=== PATIENT | female | born 1950 | race Caucasian/White ===

== ENCOUNTER 2017-10-22 13:18 | Inpatient (IN) | payer MEDICARE, OTHER ==
--- NOTE | 2017-10-22 13:37 | ED ---
General Adult HPI - General Chief complaint: Chest Pain Stated complaint: chest pain Time Seen by Provider: 10/22/17 13:28 Source: patient, RN notes reviewed, old records reviewed Mode of arrival: ambulatory Limitations: no limitations - History of Present Illness Initial comments: This is a 66-year-old female the ER for evaluation chest pain. Patient has no history of chest pain and had chest pain awoke her from sleep about 5 AM this morning. Patient has history of diabetes high blood pressure high cholesterol. No significant recent cardiac evaluation. Patient is no diaphoresis no shortness of breath no recent travel history or sick contacts. No abdominal pain no nausea or vomiting - Related Data Home Medications Medication Instructions Recorded Confirmed Arginine [l-Arginine] 500 mg PO DAILY 10/22/17 10/22/17 Aspirin EC [Ecotrin Low Dose] 81 mg PO DAILY 10/22/17 10/22/17 Atorvastatin [Lipitor] 10 mg PO DAILY 10/22/17 10/22/17 Cholecalciferol (Vitamin D3) 2,000 unit PO DAILY 10/22/17 10/22/17 [Vitamin D3] Esomeprazole Magnesium [NexIUM] 20 mg PO DAILY 10/22/17 10/22/17 Loratadine [Claritin] 10 mg PO DAILY PRN 10/22/17 10/22/17 Losartan Potassium 100 mg PO DAILY 10/22/17 10/22/17 Metoprolol Succinate (ER) [Toprol 25 mg PO DAILY 10/22/17 10/22/17 Xl] Allergies Allergy/AdvReac Type Severity Reaction Status Date / Time codeine AdvReac Unknown Verified 10/22/17 14:43 Review of Systems ROS Statement: Those systems with pertinent positive or pertinent negative responses have been documented in the HPI. ROS Other: All systems not noted in ROS Statement are negative. Past Medical History Past Medical History: Diabetes Mellitus, Hyperlipidemia, Hypertension History of Any Multi-Drug Resistant Organisms: None Reported Past Surgical History: Section, Cholecystectomy Past Psychological History: No Psychological Hx Reported Smoking Status: Current every day smoker Past Alcohol Use History: Occasional Past Drug Use History: None Reported General Exam Limitations: no limitations General appearance: alert, in no apparent distress Head exam: Present: atraumatic, normocephalic, normal inspection Eye exam: Present: normal appearance, PERRL, EOMI. Absent: scleral icterus, conjunctival injection, periorbital swelling ENT exam: Present: normal exam, mucous membranes moist Neck exam: Present: normal inspection. Absent: tenderness, meningismus, lymphadenopathy Respiratory exam: Present: normal lung sounds bilaterally. Absent: respiratory distress, wheezes, rales, rhonchi, stridor Cardiovascular Exam: Present: regular rate, normal rhythm, normal heart sounds. Absent: systolic murmur, diastolic murmur, rubs, gallop, clicks GI/Abdominal exam: Present: soft, normal bowel sounds. Absent: distended, tenderness, guarding, rebound, rigid Extremities exam: Present: normal inspection, full ROM, normal capillary refill. Absent: tenderness, pedal edema, joint swelling, calf tenderness Back exam: Present: normal inspection Neurological exam: Present: alert, oriented X3, CN II-XII intact Psychiatric exam: Present: normal affect, normal mood Skin exam: Present: warm, dry, intact, normal color. Absent: rash Course Vital Signs 10/22/17 10/22/17 10/22/17 13:23 13:50 15:00 Temperature 97.5 F L Pulse Rate 88 68 72 Respiratory 18 18 18 Rate Blood Pressure 183/84 213/84 179/70 O2 Sat by Pulse 97 98 99 Oximetry - Reevaluation(s) Reevaluation #1: 10/22/17 15:41 Patient continues episodic chest pain EKG Findings - EKG Comments: EKG Findings:: EKG shows sinus rhythm rate of 93, IA 154, QRS 90, QTc 482 Medical Decision Making - Medical Decision Making 66 female DEL chest pain, history of high blood pressure cholesterol diabetes. Positive smoker. Will admit for cardiology observation - Lab Data Result diagrams: 10/22/17 13:50 10/22/17 13:50 Lab Results 10/22/17 10/22/17 10/22/17 Range/Units 13:50 13:50 13:50 WBC 9.8 (3.8-10.6) k/uL RBC 4.49 (3.80-5.40) m/uL Hgb 14.3 (11.4-16.0) gm/dL Hct 41.4 (34.0-46.0) % MCV 92.2 (80.0-100.0) fL MCH 31.8 (25.0-35.0) pg MCHC 34.5 (31.0-37.0) g/dL RDW 12.5 (11.5-15.5) % Plt Count 287 (150-450) k/uL Neutrophils % 78 % Lymphocytes % 16 % Monocytes % 4 % Eosinophils % 0 % Basophils % 0 % Neutrophils # 7.6 (1.3-7.7) k/uL Lymphocytes # 1.6 (1.0-4.8) k/uL Monocytes # 0.4 (0-1.0) k/uL Eosinophils # 0.0 (0-0.7) k/uL Basophils # 0.0 (0-0.2) k/uL PT (9.0-12.0) sec INR (<1.2) APTT (22.0-30.0) sec D-Dimer (<0.60) mg/L FEU Sodium 142 (137-145) mmol/L Potassium 4.7 (3.5-5.1) mmol/L Chloride 101 (98-107) mmol/L Carbon Dioxide 29 (22-30) mmol/L Anion Gap 12 mmol/L BUN 14 (7-17) mg/dL Creatinine 0.48 L (0.52-1.04) mg/dL Est GFR (CKD-EPI)AfAm >90 (>60 ml/min/1.73 sqM) Est GFR (CKD-EPI)NonAf >90 (>60 ml/min/1.73 sqM) Glucose 217 H (74-99) mg/dL Calcium 9.2 (8.4-10.2) mg/dL Magnesium 1.7 (1.6-2.3) mg/dL Total Bilirubin 0.5 (0.2-1.3) mg/dL AST 23 (14-36) U/L ALT 33 (9-52) U/L Alkaline Phosphatase 84 (38-126) U/L Total Creatine Kinase 57 (30-135) U/L CK-MB (CK-2) 1.1 (0.0-2.4) ng/mL CK-MB (CK-2) Rel Index 1.9 Troponin I <0.012 (0.000-0.034) ng/mL Total Protein 7.1 (6.3-8.2) g/dL Albumin 4.1 (3.5-5.0) g/dL Lipase 32 (23-300) U/L 10/22/17 Range/Units 13:50 WBC (3.8-10.6) k/uL RBC (3.80-5.40) m/uL Hgb (11.4-16.0) gm/dL Hct (34.0-46.0) % MCV (80.0-100.0) fL MCH (25.0-35.0) pg MCHC (31.0-37.0) g/dL RDW (11.5-15.5) % Plt Count (150-450) k/uL Neutrophils % % Lymphocytes % % Monocytes % % Eosinophils % % Basophils % % Neutrophils # (1.3-7.7) k/uL Lymphocytes # (1.0-4.8) k/uL Monocytes # (0-1.0) k/uL Eosinophils # (0-0.7) k/uL Basophils # (0-0.2) k/uL PT 10.2 (9.0-12.0) sec INR 1.0 (<1.2) APTT 24.5 (22.0-30.0) sec D-Dimer 0.35 (<0.60) mg/L FEU Sodium (137-145) mmol/L Potassium (3.5-5.1) mmol/L Chloride (98-107) mmol/L Carbon Dioxide (22-30) mmol/L Anion Gap mmol/L BUN (7-17) mg/dL Creatinine (0.52-1.04) mg/dL Est GFR (CKD-EPI)AfAm (>60 ml/min/1.73 sqM) Est GFR (CKD-EPI)NonAf (>60 ml/min/1.73 sqM) Glucose (74-99) mg/dL Calcium (8.4-10.2) mg/dL Magnesium (1.6-2.3) mg/dL Total Bilirubin (0.2-1.3) mg/dL AST (14-36) U/L ALT (9-52) U/L Alkaline Phosphatase (38-126) U/L Total Creatine Kinase (30-135) U/L CK-MB (CK-2) (0.0-2.4) ng/mL CK-MB (CK-2) Rel Index Troponin I (0.000-0.034) ng/mL Total Protein (6.3-8.2) g/dL Albumin (3.5-5.0) g/dL Lipase (23-300) U/L - Radiology Data Radiology results: report reviewed (Chest x-rays negative for acute disease), image reviewed Critical Care Time Critical Care Time: Yes Total Critical Care Time: 31 Disposition Clinical Impression: Chest pain Disposition: ADMITTED IP TO THIS [facility] Condition: Undetermined Instructions: Chest Pain (ED) Is patient prescribed a controlled substance at d/c from ED?: No Referrals: Tylor Marx MD [Primary Care Provider] - 1-2 days
[2017-10-22 14:17] LABS: Basophils % (A) 0 %; Eosinophils % (A) 0 %; HCT 41.4 % (34.0-46.0); HGB 14.3 gm/dL (11.4-16.0); Lymphocytes # (A) 1.6 k/uL (1.0-4.8); Lymphocytes % (A) 16 %; MCH 31.8 pg (25.0-35.0); MCHC 34.5 g/dL (31.0-37.0); MCV 92.2 fL (80.0-100.0); Mean Platelet Volume 7.5; Monocytes # (A) 0.4 k/uL (0-1.0); Monocytes % (A) 4 %; Neutrophils # (A) 7.6 k/uL (1.3-7.7); Neutrophils % (A) 78 %; Platelet Count 287 k/uL (150-450); RBC 4.49 m/uL (3.80-5.40); RDW 12.5 % (11.5-15.5); WBC 9.8 k/uL (3.8-10.6)
--- NOTE | 2017-10-22 14:25 | XR ---
EXAMINATION TYPE: XR chest 2V DATE OF EXAM: 10/22/2017 COMPARISON: 03/11/2010 TECHNIQUE: PA and lateral views submitted. HISTORY: Chest pain FINDINGS: The lungs are clear and there is no pneumothorax, pleural effusion, or focal pneumonia. Biapical pl eural thickening. Atherosclerotic change aorta. No overt failure. Previous surgery involving the abdo men. IMPRESSION: 1. No acute process.
[2017-10-22 14:31] LABS: ALT 33 U/L (9-52); AST 23 U/L (14-36); Albumin 4.1 g/dL (3.5-5.0); Alkaline Phosphatase 84 U/L (38-126); Anion Gap 12 mmol/L; Blood Urea Nitrogen 14 mg/dL (7-17); Calcium 9.2 mg/dL (8.4-10.2); Carbon Dioxide 29 mmol/L (22-30); Chloride 101 mmol/L (98-107); Glucose 217 mg/dL (74-99); Lipase 32 U/L (23-300); Magnesium 1.7 mg/dL (1.6-2.3); Potassium 4.7 mmol/L (3.5-5.1); Sodium 142 mmol/L (137-145); Total Bilirubin 0.5 mg/dL (0.2-1.3); Total Protein 7.1 g/dL (6.3-8.2)
[2017-10-22 14:36] LABS: D-Dimer 0.35 mg/L FEU (<0.60); Partial Thromboplastin Time 24.5 sec (22.0-30.0); Prothrombin Time 10.2 sec (9.0-12.0)
[2017-10-22 14:53] LABS: Creatine Kinase 57 U/L (30-135)
[2017-10-22 15:04] LABS: Creatine Kinase MB 1.1 ng/mL (0.0-2.4); Troponin I <0.012 ng/mL (0.000-0.034)
[2017-10-22] MEDS ORDERED: HEPARIN SODIUM,PORCINE 5,000 UNIT/ML 1 ML VIAL IV ONE (15:29)
[2017-10-22] MEDS ORDERED: ASPIRIN 81 MG PO STA (15:29)
[2017-10-22] MEDS ORDERED: NITROGLYCERIN SL TABS 0.4 MG TAB SUBLINGUAL PRN (15:29)
[2017-10-22] MEDS ORDERED: HEPARIN SODIUM,PORCINE 5,000 UNIT/ML 1 ML VIAL IV PRN (15:29)
[2017-10-22] MEDS ORDERED: HEPARIN SODIUM,PORCINE/D5W PMX 25,000 UNIT in DEXTROSE/WATER 1 500ML.BAG IV SCH (15:30)
[2017-10-22] MEDS ORDERED: METOPROLOL TARTRATE 25 MG TAB PO SCH (21:00)
[2017-10-22 21:39] VITALS: BMI 31.8
[2017-10-22 22:02] LABS: Creatine Kinase 51 U/L (30-135)
[2017-10-22] MEDS: NICOTINE 14MG/24HR PATCH TRANSDERM SCH (22:03)
[2017-10-22 22:15] LABS: Creatine Kinase MB 0.9 ng/mL (0.0-2.4); Troponin I <0.012 ng/mL (0.000-0.034)
[2017-10-23 01:36] LABS: Creatine Kinase 46 U/L (30-135)
[2017-10-23 01:48] LABS: Troponin I <0.012 ng/mL (0.000-0.034)
[2017-10-23] MEDS: ACETAMINOPHEN TAB 325 MG TAB PO PRN ×2 (03:38→10:28)
[2017-10-23 07:03] LABS: Glucose,Whole Blood 102 mg/dL (75-99)
[2017-10-23 07:45] LABS: Mean Platelet Volume 7.2; Platelet Count 269 k/uL (150-450)
[2017-10-23 08:00] LABS: Cholesterol 148 mg/dL (<200); HDL Cholesterol 61 mg/dL (40-60); LDL Cholesterol,Calculated 67 mg/dL (0-99); Triglycerides 98 mg/dL (<150)
[2017-10-23] MEDS ORDERED: ASPIRIN 325 MG TAB PO SCH (09:00)
[2017-10-23] MEDS ORDERED: ASPIRIN 81 MG PO SCH (09:00)
--- NOTE | 2017-10-23 10:34 | P.CRDCN ---
History of Present Illness History of present illness: Mrs. Villalobos is a pleasant 66-year-old female past medical history significant for hypertension, dyslipidemia, diabetes mellitus, bilateral carotid artery stenosis and chronic tobacco dependence. She follows with Dr. Moreira in the office. We have asked to see her in consultation for symptoms of chest pain. She states yesterday she started experiencing sharp intermittent discomfort in the mid-sternal region. No radiation and no associated symptoms. She has also had diarrhea since yesterday morning as well. The pain was off and on all day yesterday with no specific aggravating factors. Since being in the hospital pain has subsided entirely. She states it seems to feel better while she is lying flat in bed. Blood pressure on admission was 183/84 and 213/ 84. EKG reveals sinus mechanism with no acute ST or T-wave abnormalities. Chest x-ray is negative for acute cardiopulmonary process. Laboratory data reviewed, cardiac enzymes negative 3, d-dimer normal, hemoglobin 14.3, platelets 269, sodium 142, potassium 4.7, creatinine 0.48, magnesium 1.7, LDL 67, HDL 61. Current cardiac medications include Toprol 25 mg daily, losartan 100 mg daily, atorvastatin 10 mg daily and aspirin 81 mg daily. She also takes Claritin, Nexium and has an insulin infusion pump. Most recent stress test performed in the office in 2012 was negative for reversible cardiac ischemia. Most recent echocardiogram May 2016 reveals preserved left ventricular systolic function with ejection fraction 55%. Most recent carotid duplex performed June 2017 revealed 50-79% ICA bilateral stenosis. She recently wore a 24-hour Holter monitor first complaints of palpitations which revealed sinus mechanism with no acute arrhythmia or tachycardia. Review of Systems At the time of my exam: CONSTITUTIONAL: Denies fever. Denies chills. EYES: Denies blurred vision. Denies vision changes. Denies eye pain. EARS, NOSE, MOUTH & THROAT: Denies headache. Denies sore throat. Denies ear pain. CARDIOVASCULAR: Denies chest pain. Denies shortness of breath. Denies orthopnea. Denies PND. Denies palpitations. RESPIRATORY: Denies cough. GASTROINTESTINAL: Denies abdominal pain. Denies diarrhea. Denies constipation. Denies nausea. Denies vomiting. MUSCULOSKELETAL: Denies myalgias. INTEGUMENTARY: Denies pruitis. Denies rash. NEUROLOGIC: Denies numbness. Denies tingling. Denies weakness. PSYCHIATRIC: Denies anxiety. Denies depression. ENDOCRINE: Denies fatigue. Denies weight change. Denies polydipsia. Denies polyurina. GENITOURINARY: Denies burning, hematuria or urgency with micturation. HEMATOLOGIC: Denies history of anemia. Denies bleeding. Past Medical History Past Medical History: Diabetes Mellitus, Hyperlipidemia, Hypertension Additional Past Medical History / Comment(s): Implanted insulin pump History of Any Multi-Drug Resistant Organisms: None Reported Past Surgical History: Section, Cholecystectomy Past Anesthesia/Blood Transfusion Reactions: No Reported Reaction Smoking Status: Current every day smoker - Past Family History Mother Family Medical History: Cancer Additional Family Medical History / Comment(s): pancreatic Ca, stents Father Family Medical History: Cancer Additional Family Medical History / Comment(s): Prostate CA, heart issues Sister(s) Family Medical History: Diabetes Mellitus Medications and Allergies Home Medications Medication Instructions Recorded Confirmed Type Arginine [l-Arginine] 500 mg PO DAILY 10/22/17 10/22/17 History Aspirin EC [Ecotrin Low Dose] 81 mg PO DAILY 10/22/17 10/22/17 History Atorvastatin [Lipitor] 10 mg PO DAILY 10/22/17 10/22/17 History Cholecalciferol (Vitamin D3) 2,000 unit PO DAILY 10/22/17 10/22/17 History [Vitamin D3] Esomeprazole Magnesium [NexIUM] 20 mg PO DAILY 10/22/17 10/22/17 History Loratadine [Claritin] 10 mg PO DAILY PRN 10/22/17 10/22/17 History Losartan Potassium 100 mg PO DAILY 10/22/17 10/22/17 History Metoprolol Succinate (ER) [Toprol 25 mg PO DAILY 10/22/17 10/22/17 History Xl] Allergies Allergy/AdvReac Type Severity Reaction Status Date / Time ibuprofen [From Advil] Allergy Rash/Hives Verified 10/22/17 21:22 codeine AdvReac Rash/Hives Verified 10/22/17 21:22 Physical Exam Vitals: Vital Signs Temp Pulse Pulse Resp BP BP Pulse Ox 10/23/17 03:51 16 10/23/17 03:39 98.0 F 87 16 145/76 95 10/23/17 00:00 98.1 F 67 16 157/55 92 L 10/22/17 21:04 98.1 F 73 16 175/67 93 L 10/22/17 20:29 97.8 F 80 18 168/70 96 10/22/17 20:00 18 10/22/17 18:22 71 16 177/71 98 10/22/17 15:00 72 18 179/70 99 10/22/17 13:50 68 18 213/84 98 10/22/17 13:23 97.5 F L 88 18 183/84 97 Intake and Output 10/22/17 10/23/17 10/23/17 22:59 06:59 14:59 Other: # Voids 1 1 Weight 81.6 kg Blood pressure 156/53 heart rate 69 afebrile maintaining oxygen saturation on room air GENERAL: This is a 66-year-old female in no apparent distress at the time of my examination. HEENT: Head is atraumatic, normocephalic. Pupils are equal, round. Sclerae anicteric. Conjunctivae are clear. Mucous membranes of the mouth are moist. Neck is supple. There is no jugular venous distention. No carotid bruit is heard. LUNGS: Clear to auscultation no wheezes, rales or rhonchi. No chest wall tenderness is noted on palpation or with deep breathing. HEART: Regular rate and rhythm without murmurs, rubs or gallops. S1 and S2 heard. ABDOMEN: Soft, nontender. Bowel sounds are heard. No organomegaly noted. EXTREMITIES: No evidence of peripheral edema and no calf tenderness noted. VASCULAR: Radial and dorsalis pedis pulses palpated, no evidence of clubbing. NEUROLOGIC: Patient is awake, alert and oriented x3. Results 10/23/17 06:24 10/22/17 13:50 Cardiac Enzymes 10/22/17 10/22/17 10/22/17 Range/Units 13:50 13:50 21:04 AST 23 (14-36) U/L CK-MB (CK-2) 1.1 0.9 (0.0-2.4) ng/mL Troponin I <0.012 <0.012 (0.000-0.034) ng/mL 10/23/17 Range/Units 00:55 AST (14-36) U/L CK-MB (CK-2) 1.0 (0.0-2.4) ng/mL Troponin I <0.012 (0.000-0.034) ng/mL Coagulation 10/22/17 10/23/17 Range/Units 13:50 00:55 PT 10.2 (9.0-12.0) sec APTT 24.5 54.6 H (22.0-30.0) sec CBC 10/22/17 Range/Units 13:50 WBC 9.8 (3.8-10.6) k/uL RBC 4.49 (3.80-5.40) m/uL Hgb 14.3 (11.4-16.0) gm/dL Hct 41.4 (34.0-46.0) % Plt Count 287 (150-450) k/uL Comprehensive Metabolic Panel 10/22/17 Range/Units 13:50 Sodium 142 (137-145) mmol/L Potassium 4.7 (3.5-5.1) mmol/L Chloride 101 (98-107) mmol/L Carbon Dioxide 29 (22-30) mmol/L BUN 14 (7-17) mg/dL Creatinine 0.48 L (0.52-1.04) mg/dL Glucose 217 H (74-99) mg/dL Calcium 9.2 (8.4-10.2) mg/dL AST 23 (14-36) U/L ALT 33 (9-52) U/L Alkaline Phosphatase 84 (38-126) U/L Total Protein 7.1 (6.3-8.2) g/dL Albumin 4.1 (3.5-5.0) g/dL Current Medications Generic Name Dose Route Start Last Admin Trade Name Freq PRN Reason Stop Dose Admin Acetaminophen 650 mg 10/23/17 03:32 10/23/17 03:38 Tylenol Tab PO 650 mg Q6HR PRN Administration Fever and/ or Pain Aspirin 325 mg 10/23/17 09:00 Aspirin PO DAILY PENELOPE Heparin Sodium (Porcine) 0 unit 10/22/17 15:29 Heparin IV Q6HR PRN Low PTT Protocol Heparin Sodium/Dextrose 25,000 500 mls @ 19.59 mls/hr 10/22/17 15:30 18:17 unit/ IV Solution IV 12 units/kg/hr .Q24H PENELOPE 19.59 mls/hr Protocol Administration 12 UNITS/KG/HR Metoprolol Tartrate 25 mg 10/22/17 21:00 10/22/17 21:46 Lopressor PO 25 mg BID PENELOPE Administration Nicotine 1 patch 10/22/17 21:30 10/22/17 22:03 Habitrol 14mg/24hr Patch TRANSDERM 1 patch DAILY PENELOPE Administration Nitroglycerin 0.4 mg 10/22/17 15:29 Nitrostat SUBLINGUAL Q5M PRN Chest Pain Intake and Output 10/22/17 10/23/17 10/23/17 22:59 06:59 14:59 Other: # Voids 1 1 Weight 81.6 kg 10/22/17 13:50 10/22/17 13:50 Assessment and Plan Assessment: ASSESSMENT 1. Chest pain, atypical. An acute coronary event has been ruled out with no EKG evidence of ischemia and normal cardiac enzymes. 2. Hypertension, uncontrolled 3. Dyslipidemia 4. Diabetes mellitus 5. Carotid artery stenosis 6. Chronic tobacco dependence PLAN Obtain 2-D echocardiogram and Doppler study to assess cardiac structure and function. Perform Cardiolite stress test to assess for reversible cardiac ischemia. Increase atorvastatin to 40 mg daily. Add amlodipine 5 mg daily. Resume Toprol 25 mg daily, losartan 100 mg daily and aspirin 81 mg daily. Smoking cessation recommended. Further recommendations to follow based on clinical course and test results. Thank you kindly for this consultation. Nurse Practitioner note has been reviewed, I agree with a documented findings and plan of care. Patient was seen and examined.
[2017-10-23] MEDS ORDERED: INSPUCOR MISCELLANE PRN (11:33)
[2017-10-23] MEDS ORDERED: INSULIN ASPART 100 UNIT/ML 1 ML 10 ML VIAL SQ PRN (11:33)
[2017-10-23] MEDS ORDERED: INSULIN PUMP BASAL RATES 1 EACH MISC MISCELLANE PRN (11:33)
--- NOTE | 2017-10-23 11:50 | ECHOF ---
Referral Reason:cp MEASUREMENTS -------- HEIGHT: 160.0 cm WEIGHT: 81.6 kg BP: 179/70 RVIDd: 2.7 cm (< 3.3) IVSd: 1.1 cm (0.6 - 1.1) LVIDd: 3.8 cm (3.9 - 5.3) LVPWd: 1.1 cm (0.6 - 1.1) IVSs: 1.4 cm LVIDs: 2.7 cm LVPWs: 1.4 cm LAESV Index (A-L): 17.49 ml/m Ao Diam: 3.0 cm (2.0 - 3.7) AV Cusp: 1.9 cm (1.5 - 2.6) LA Diam: 3.3 cm (2.7 - 3.8) MV E Miguel: 0.71 m/s MV DecT: 289 ms MV A Miguel: 0.91 m/s MV E/A Ratio: 0.78 RAP: 5.00 mmHg RVSP: 28.88 mmHg MV EF SLOPE: 103.29 mm/s (70 - 150) MV EXCURSION: 1.57 cm (> 18.000) FINDINGS -------- Sinus rhythm. This was a technically adequate study. The left ventricular size is normal. There is borderline concentric left ventricular hypertrophy. Overall left ventricular systolic function is normal with, an EF between 55 - 60 %. The right ventricle is normal in size and function. Normal LA size by volume 22+/-6 ml/m2. The right atrium is normal in size. Aortic valve is trileaflet and is mildly thickened. There is no evidence of aortic regurgitation. There is no evidence of aortic stenosis. Mild mitral annular calcification present. There is trace to mild mitral regurgitation. Trace tricuspid regurgitation present. Right ventricular systolic pressure is normal at < 35 mmHg. There is no evidence of pulmonary hypertension. The pulmonic valve was not well visualized. The aortic root size is normal. Normal inferior vena cava with normal inspiratory collapse consistent with estimated right atrial pre ssure of 5 mmHg. There is no pericardial effusion. CONCLUSIONS -------- 1. Sinus rhythm. 2. This was a technically adequate study. 3. The left ventricular size is normal. 4. There is borderline concentric left ventricular hypertrophy. 5. Overall left ventricular systolic function is normal with, an EF between 55 - 60 %. 6. Normal LA size by volume 22+/-6 ml/m2. 7. Aortic valve is trileaflet and is mildly thickened. 8. Mild mitral annular calcification present. 9. There is trace to mild mitral regurgitation. 10. Trace tricuspid regurgitation present. 11. Right ventricular systolic pressure is normal at < 35 mmHg. 12. There is no evidence of pulmonary hypertension. 13. The pulmonic valve was not well visualized. 14. The aortic root size is normal. 15. There is no pericardial effusion. RAILWAY SIGNALLING ENGINEER: Agustin Quiroz RDCS
[2017-10-23 12:24] LABS: Glucose,Whole Blood 98 mg/dL (75-99)
--- NOTE | 2017-10-23 12:33 | NM ---
EXAMINATION TYPE: NM stress cardiolite complete DATE OF EXAM: 10/23/2017 COMPARISON: NONE HISTORY: Chest pain, palpitations, hyperlipidemia, diabetes, hypertension, tobacco abuse and family h istory of coronary artery disease TECHNIQUE: After the intravenous administration of 10.7 mCi Tc 99m Sestamibi - Rest images obtained 50 minutes post injection. The patient exercised using a CHLESEY protocol and 1 minute prior to peak exercise was injected with 26.6 mCi Tc 99m Sestamibi - Stress images obtained 15 minutes post injecti on. FINDINGS: Targeted heart rate was achieved during performance of the study. Review of stress and rest SPECT rebekah ges demonstrates a reversible perfusion defect in the inferior lateral wall that is mild and occupies approximately 3 segment. This is likely in the distribution of the left circumflex coronary artery a lthough overlaps with the right coronary artery distribution. Gated analysis shows normal wall motio n with an estimated left ventricular ejection fraction of 67 %. TID is calculated within normal limit s at 0.86. IMPRESSION: Small, approximately 3 segment reversible defect indicating ischemia in the inferolateral wall likely the distribution of the left circumflex coronary artery. A Yellow level critical message alert has been initiated for Maikel Blank via the [facility] on 10/23/2017 12:30 PM. This message alert has been sent to Maikel mendez via the preferences provided by the clinician for the receipt of Radiology Critical Findings. Mess age ID [id number].
[2017-10-23] MEDS ORDERED: SODIUM CHLORIDE 0.9% 1,000 ML in EMPTY BAG 1 BAG IV ONE (12:50)
[2017-10-23] MEDS ORDERED: ALPRAZolam 0.5 MG TAB PO PRN (12:50)
[2017-10-23] MEDS ORDERED: INSULIN PUMP ACTIVE INSULIN 1 EACH MISC MISCELLANE PRN (12:56)
[2017-10-23] MEDS ORDERED: INSULIN PUMP TARGET GLUCOSE 1 EACH MISC MISCELLANE PRN (12:56)
[2017-10-23] MEDS: LOSARTAN 50 MG TAB PO SCH (13:06)
[2017-10-23] MEDS: amLODIPine 5 MG TAB PO SCH (13:06)
[2017-10-23] MEDS: PANTOPRAZOLE 40 MG TABLET PO SCH (13:06)
[2017-10-23] MEDS: NICOTINE 14MG/24HR PATCH TRANSDERM SCH (13:07)
[2017-10-23] MEDS: ATORVASTATIN 40 MG TAB PO SCH (13:07)
[2017-10-23] MEDS: INSULIN PUMP MEAL BOLUS 1 UNIT MISC MISCELLANE SCH ×3 (13:07→22:09)
--- NOTE | 2017-10-23 13:14 | EST ---
EXERCISE STRESS DATE OF SERVICE: 10/23/2017 AGE: 66 SEX: Female HT: 5'3" WT: 179 PROTOCOL: Cardiolite Ladarius STAGE: I DURATION OF EXERCISE: 5 minutes HEART RATE REST: 67 BLOOD PRESSURE REST: 153/74 MAXIMUM HEART RATE ACHIEVED: 141 MAXIMUM BLOOD PRESSURE: 230/44 85% MPHR: 130 100% MPHR: 153 METS: 6.9 INDICATIONS: Chest pain. CLINICAL INFORMATION: Patient was exercised for a total period of 5 minutes. Peak heart rate of 141, was achieved. Maximum blood pressure of 230/44 mmHg was noted. The patient did not complain of any chest pain during the test. Resting EKG shows normal sinus rhythm with normal MN interval and QRS duration and normal ST-T waves. No ST-segment depression suggestive of ischemia is noted. FINAL IMPRESSION: This stress EKG is not suggestive of ischemia. Patient's exercise tolerance is average. The results of the nuclear study will follow. JOSELUIS / YOBANYN: [id number] /
--- NOTE | 2017-10-23 14:49 | P.PN ---
Progress Note - Text Lexiscan stress test indicates an area of reversible cardiac ischemia is the inferolateral region. Films were reviewed by Dr. Blank and cardiac catheterization has been recommended. I have discussed the risks, benefits and alternative therapies for the above-mentioned procedure and for both sedation/ analgesia as well as necessary blood product administration, if indicated, as they pertain to this patient. The patient has indicated understanding and acceptance of the risks and procedures discussed. Questions have been answered appropriately and she is agreeable to proceed with above stated procedure. Dr. Moreira will perform tomorrow morning. NPO after midnight tonight.
--- NOTE | 2017-10-23 16:23 | HP ---
HISTORY AND PHYSICAL DATE OF ADMISSION: 10/22/2017 DATE OF SERVICE: 10/23/2017 PRESENTING COMPLAINT: Chest pain. HISTORY OF PRESENTING COMPLAINT: This is a pleasant 66-year-old patient of Dr. Marx. Chronic stable medical conditions include diabetes, hypertension, hyperlipidemia, GERD and insulin insulin. Patient presented with what she describes as a nagging sensation in the center of the chest, present off and on for a few hours and quite bothering her. It did not radiate. There was no shortness of breath, no perspiration, no dizziness, no lightheadedness. She presented to the ER. Given her multiple cardiac risk factors, she was admitted with a diagnosis of unstable angina. Cardiology was consulted. Otherwise, she does not get any symptoms with exertion. Patient is also a smoker. REVIEW OF SYSTEMS: CONSTITUTIONAL: Tired. HEENT: Nasal stuffiness. RESPIRATORY: As above. CARDIOVASCULAR: As above. GASTROINTESTINAL: Heartburn. Patient did have some loose stools yesterday, which resolved. No fever. No chills. GENITOURINARY: None. MUSCULOSKELETAL: None. DERMATOLOGICAL: None. HEMATOLOGICAL: None. LYMPHATICS: None. PSYCHIATRY: None. NEUROLOGICAL: None. PAST MEDICAL HISTORY: 1. Diabetes, insulin-requiring. 2. Hyperlipidemia. 3. Hypertension. PAST SURGICAL HISTORY: 1. . 2. Cholecystectomy. SOCIAL HISTORY: She has been smoking a pack a day for close to 48 years. . Alcohol occasionally. FAMILY HISTORY: Pancreatic cancer with stents. HOME MEDICATIONS: 1. Toprol XL 25 mg a day. 2. Losartan 100 mg p.o. daily. 3. Claritin 10 mg p.o. daily p.r.n. 4. Nexium 20 mg p.o. daily. 5. Vitamin D3 2000 units p.o. daily. 6. Lipitor 10 mg p.o. daily. 7. Aspirin 81 mg p.o. daily. 8. Arginine 500 mg p.o. daily. ALLERGIES: 1. IBUPROFEN. 2. CODEINE. PHYSICAL EXAMINATION: VITAL SIGNS ON PRESENTATION: Temperature 97.5, pulse 80, respiration 18, blood pressure 183/84, pulse ox 97% on room air. On repeat it came down to 177/71. GENERAL APPEARANCE: Well built; BMI 31.9. Sitting up, awake. EYES: Pupils equal. Conjunctivae normal. HEENT: External appearance of nose and ears normal. Oral cavity normal. NECK: JVD not raised. Mass not palpable. RESPIRATORY: Effort normal. LUNGS: Slightly decreased breath sounds. CARDIOVASCULAR: First and second sounds normal. No edema. ABDOMEN: Soft, non-tender. Liver and spleen not palpable. LYMPHATIC: No lymph node palpable in neck or axillae. PSYCHIATRY: Alert and oriented x3. Mood and affect normal. NEUROLOGICAL: Pupils equal. Cranial nerves grossly intact. Power and sensation grossly intact. INVESTIGATIONS: White count 9.8, hemoglobin 14.3, potassium 4.7, BUN 14, creatinine 0.48. Troponin x3 negative. LDL 67. Two-D echocardiogram shows EF of 55% to 60%. EKG normal sinus rhythm. Stress Cardiolite did show some reversible changes. ASSESSMENT: 1. Unstable angina in a patient with multiple cardiac risk factors presenting with anterior chest wall pain. 2. Diabetes mellitus, type 2, chronically on insulin pump. 3. Hyperlipidemia. 4. Essential hypertension, uncontrolled. 5. Gastroesophageal reflux disease. 6. Obesity; body mass index of 31.9. 7. Chronic nicotine dependence. Patient is a cigarette smoker. PLAN: I saw the patient earlier today. Patient is on aspirin, Norvasc, beta taylor. Insulin pump has been resumed. Patient will go for a cardiac cath tomorrow, given the positive stress test. SMOKING CESSATION COUNSELING: This was done extensively with the patient. Patient will be given a nicotine patch. She was told that will definitely at some point affect her breathing, and she is already having chest pains. More than 3 minutes was spent on this aspect of the case. MMODL / IJN: [id number] /
[2017-10-23 17:41] LABS: Glucose,Whole Blood 100 mg/dL (75-99)
[2017-10-23] MEDS: CALCIUM CARBONATE LIQUID 500 MG/5 ML CUP PO SCH (18:29)
[2017-10-23 19:50] LABS: Hemoglobin A1C 6.9 % (4.0-6.0)
[2017-10-23 20:20] LABS: Glucose,Whole Blood 172 mg/dL (75-99)
[2017-10-23] MEDS: ALPRAZolam 0.25 MG TAB PO PRN (22:03)
[2017-10-24] MEDS ORDERED: ASPIRIN 325 MG TAB PO ONE (06:00)
[2017-10-24] MEDS: LOSARTAN 50 MG TAB PO SCH (06:29)
[2017-10-24] MEDS: amLODIPine 5 MG TAB PO SCH (06:30)
[2017-10-24] MEDS: CALCIUM CARBONATE LIQUID 500 MG/5 ML CUP PO SCH ×3 (06:31→18:11)
[2017-10-24] MEDS: ATORVASTATIN 40 MG TAB PO SCH (06:31)
[2017-10-24] MEDS: PANTOPRAZOLE 40 MG TABLET PO SCH (06:31)
[2017-10-24] MEDS: METOPROLOL SUCCINATE (ER) 25 MG TAB.ER.24H PO SCH (06:32)
[2017-10-24] MEDS: INSULIN PUMP MEAL BOLUS 1 UNIT MISC MISCELLANE SCH ×3 (06:41→20:47)
[2017-10-24] MEDS ORDERED: LIDOCAINE 1% INJ 10MG/ML (20 ML MDV) ONE (10:44)
[2017-10-24] MEDS ORDERED: SODIUM CHLORIDE 0.9% 1,000 ML IV ONE (10:46)
[2017-10-24] MEDS ORDERED: MIDAZOLAM 2 MG/2 ML VIAL ONE ×2 (10:50→12:10)
[2017-10-24] MEDS: MIDAZOLAM 2 MG/2 ML VIAL IVP ONE ×2 (10:52→11:00)
[2017-10-24] MEDS ORDERED: MIDAZOLAM 2 MG/2 ML VIAL IVP ONE ×2 (10:52→12:11)
[2017-10-24] MEDS ORDERED: LIDOCAINE 1%-EPI 1:100,000 20 ML VIAL SQ ONE (10:54)
[2017-10-24] MEDS ORDERED: fentaNYL (PF) 50 MCG/ML 2 ML AMP ONE (10:55)
[2017-10-24] MEDS ORDERED: fentaNYL (PF) 50 MCG/ML 2 ML AMP IVP ONE (10:56)
--- NOTE | 2017-10-24 11:36 | CC ---
CARDIAC CATHETERIZATION REPORT INDICATION: Chest pain with abnormal stress test. PROCEDURE NOTE: After obtaining informed consent, left heart catheterization and coronary angiogram are performed via the right femoral artery using standard Sallie catheters. The patient tolerated the procedure well without any obvious immediate complications. The patient received moderate conscious sedation and total sedation time is 15 minutes. FINDINGS: 1. HEMODYNAMICS: Left ventricular end-diastolic pressure is 18 mm. There is no significant gradient across the aortic valve. 2. LEFT VENTRICULOGRAM: Left ventriculogram is not performed. 3. ANGIOGRAPHIC DATA: 4. Left main coronary artery: Left main coronary artery is a normal-sized vessel and is free of stenosis. Divides into left anterior descending coronary artery and circumflex coronary artery. LAD and its branches, circumflex coronary artery and its branches are free of significant stenosis. Right coronary artery is a large dominant vessel and the mid RCA shows a 60% to 70% stenosis. CONCLUSIONS: A 60% to 70% stenosis involving mid right coronary artery. PLAN: I reviewed angiographic data with Dr. Bee the on-call brand leader who will perform an FFR of the RCA lesion and if it is significant perform stenting. MMODL / IJN: [id number] /
[2017-10-24] MEDS ORDERED: BIVALIRUDIN 250 MG in SODIUM CHLORIDE 0.9% 50 ML IV ONE (12:07)
[2017-10-24] MEDS ORDERED: BIVALIRUDIN BOLUS 250 MG/50 ML IV ONE (12:07)
[2017-10-24] MEDS ORDERED: ADENOSINE 90 MG in SODIUM CHLORIDE 0.9% 60 ML IVP ONE (12:16)
[2017-10-24] MEDS ORDERED: METOPROLOL TARTRATE 5 MG/5 ML VIAL IVP ONE ×2 (12:18→12:20)
[2017-10-24] MEDS ORDERED: IOPAMIDOL-370 125ML BTL INJ ONE (12:24)
[2017-10-24] MEDS ORDERED: hydrALAZINE HCL 20 MG/ML 1 ML VIAL ONE (12:25)
[2017-10-24] MEDS ORDERED: hydrALAZINE HCL 20 MG/ML 1 ML VIAL IVP ONE (12:27)
[2017-10-24] MEDS ORDERED: RX INFO: IV CONTRAST WAS GIVEN 1 EACH MISC MISCELLANE PRN (12:28)
[2017-10-24] MEDS ORDERED: SODIUM CHLORIDE 0.9% 1,000 ML IV SCH (12:30)
[2017-10-24 12:53] LABS: Glucose,Whole Blood 78 mg/dL (75-99)
[2017-10-24] MEDS: NICOTINE 14MG/24HR PATCH TRANSDERM SCH (13:37)
[2017-10-24 19:12] VITALS: RESP 16
[2017-10-24 20:40] LABS: Glucose,Whole Blood 97 mg/dL (75-99)
[2017-10-24] MEDS: ALPRAZolam 0.25 MG TAB PO PRN (22:03)
--- NOTE | 2017-10-24 23:35 | PN ---
PROGRESS NOTE DATE OF SERVICE: 10/24/2017 PRESENTING COMPLAINT: Chest pain. INTERVAL HISTORY: This patient was seen by me earlier today, presented with chest pain, was going to go for a stress test. No further episodes. Lying in bed, comfortable. REVIEW OF SYSTEMS: Done for constitutional, cardiovascular, GI, pulmonary; relevant findings as above. CURRENT MEDICATIONS: Reviewed. EXAMINATION: Temperature 97.9, pulse 59, respirations 18, blood pressure 145/56, pulse ox 98% on room air. GENERAL APPEARANCE: Lying in bed, comfortable. EYES: Pupils equal. Conjunctivae normal. HEENT: External appearance of nose and ears normal. Oral cavity normal. NECK: JVD not raised. Mass not palpable. RESPIRATORY: Effort normal. LUNGS: Slightly decreased breath sounds. CARDIOVASCULAR: First and second sounds normal. No edema. ABDOMEN: Soft, nontender. Liver and spleen not palpable. PSYCHIATRY: Alert and oriented x3. Mood and affect normal. INVESTIGATIONS: Troponin negative. ASSESSMENT: 1. Unstable angina. The patient has multiple cardiac risk factors, will be going for a stress test. 2. Diabetes mellitus type 2, chronically on insulin pump. 3. Hyperlipidemia. 4. Essential hypertension. 5. Gastroesophageal reflux disease. 6. Obesity; BMI 31.9. 7. Chronic nicotine dependence. Patient is a cigarette smoker. PLAN: Patient is going to go for a cardiac catheterization. The patient did have a positive stress test. Care was discussed with the patient. JOSELUIS / YOBANYN: [id number] /
[2017-10-25 06:40] LABS: Glucose,Whole Blood 158 mg/dL (75-99)
[2017-10-25] MEDS: INSULIN PUMP MEAL BOLUS 1 UNIT MISC MISCELLANE SCH ×2 (08:47→12:35)
[2017-10-25] MEDS: NICOTINE 14MG/24HR PATCH TRANSDERM SCH (09:20)
[2017-10-25] MEDS: METOPROLOL SUCCINATE (ER) 25 MG TAB.ER.24H PO SCH (09:20)
[2017-10-25] MEDS: ATORVASTATIN 40 MG TAB PO SCH (09:21)
[2017-10-25] MEDS: PANTOPRAZOLE 40 MG TABLET PO SCH (09:21)
[2017-10-25] MEDS: LOSARTAN 50 MG TAB PO SCH (09:21)
[2017-10-25] MEDS: CALCIUM CARBONATE LIQUID 500 MG/5 ML CUP PO SCH ×2 (09:21→12:35)
--- NOTE | 2017-10-25 10:36 | P.PN ---
Subjective Mrs. Villalobos is seen and examined in no acute distress. She underwent cardiac catheterization yesterday per Dr. Moreira and FFR per Dr. Bee. She was found to have a lesion in the RCA that was 60-70%, FFR was 0.86 and medical therapy was recommended. She has been up ambulating without difficulty. Denies pain to the groin. FemStop was applied post-procedure and there was small amount of oozing noted last night. Currently there area is clean, dry and intact with no bleeding , no hematoma and no oozing noted. Blood pressure 127/56 heart rate 74 afebrile maintaining oxygen saturation on room air. Objective - Vital Signs Vital signs: Vital Signs Temp 97.9 F 10/25/17 07:32 Pulse 74 10/25/17 07:32 Resp 16 10/25/17 07:32 BP 127/56 10/25/17 07:32 Pulse Ox 95 10/25/17 07:32 Intake & Output 10/24/17 10/25/17 10/25/17 18:59 06:59 18:59 Intake Total 634.3 236 Balance 634.3 236 Intake: IV 214.3 Oral 420 236 Other: Voiding Method Toilet Toilet - Exam GENERAL: Well-appearing, well-nourished and in no acute distress. NECK: Supple without JVD or thyromegaly. LUNGS: Breath sounds clear to auscultation bilaterally. Respiration equal and unlabored. No wheezes, rales or rhonchi. HEART: Regular rate and rhythm without murmurs, rubs or gallops. S1 and S2 heard. EXTREMITIES: Normal range of motion, no edema. No clubbing or cyanosis. Peripheral pulses intact and strong. Right groin clean, dry and intact with no hematoma, no bleeding and no ecchymosis. Distal pulses intact. - Labs CBC & Chem 7: 10/23/17 06:24 10/22/17 13:50 Labs: Abnormal Lab Results - Last 24 Hours (Table) 10/25/17 Range/Units 06:32 POC Glucose (mg/dL) 158 H (75-99) mg/dL Assessment and Plan Assessment: ASSESSMENT 1. Chest pain, atypical. An acute coronary event has been ruled out with no EKG evidence of ischemia and normal cardiac enzymes. 2. Hypertension, uncontrolled 3. Dyslipidemia 4. Diabetes mellitus 5. Carotid artery stenosis 6. Chronic tobacco dependence PLAN Stable from a cardiac perspective. Amlodipine was added for elevated blood pressure on admission. She is hesitant to start a new medication. Blood pressure this morning before medication is good. She has been advised to check blood pressure daily and keep a log for Dr. Moreira. Atorvastatin has been increased and new prescription sent to her pharmacy. Follow up with Dr. Moreira in 1-week. Smoking cessation recommended. Nurse Practitioner note has been reviewed, I agree with a documented findings and plan of care. Patient was seen and examined.
[2017-10-25] MEDS: amLODIPine 5 MG TAB PO SCH (10:49)
[2017-10-25 11:38] VITALS: BP 146/72; PULSE 76; TEMP 98.1
[2017-10-25 12:25] LABS: Glucose,Whole Blood 138 mg/dL (75-99)
--- NOTE | 2017-10-25 22:49 | DS ---
DISCHARGE SUMMARY DATE OF ADMISSION: 10/23/2017 DATE OF DISCHARGE: 10/25/2017 FINAL DIAGNOSES: 1. Possible unstable angina with non-obstructive disease per cardiac catheterization. 2. Diabetes mellitus, type 2, chronically on insulin pump. 3. Hyperlipidemia. 4. Essential hypertension. 5. Gastroesophageal reflux disease. 6. Obesity; body mass index 31.9. 7. Chronic nicotine dependence. Patient is a cigarette smoker. 8. Stenosis 70% in the right coronary artery. HOSPITAL COURSE: This patient with multiple medical problems presented with chest pain. Troponins were negative. Stress test was positive, nuclear type. Cardiac catheterization showed a 60% to 70%, and though an FFR was done, it was not felt to treat it right now, but just to manage it medically. Patient is doing well, symptom-free, at the time of discharge; up and about. PHYSICAL EXAMINATION: Lungs are clear. Fair air entry. CARDIOVASCULAR: First and second sounds normal. CONSULTATIONS: 1. Dr. Shelli Moreira from Cardiology. 2. Dr. Bee from Interventional Cardiology. The patient did have a 2-D echocardiogram that showed an ejection fraction of 55% to 60%. DISCHARGE MEDICATIONS: 1. Arginine 500 mg p.o. daily. 2. Aspirin 81 mg p.o. daily. 3. Vitamin D3 2000 units p.o. daily. 4. Nexium 20 mg p.o. daily. 5. Losartan 100 mg p.o. daily. 6. Toprol XL 25 mg p.o. daily. 7. Lipitor 40 mg p.o. daily. 8. Nicotine 14 mg patch. 9. Nitrostat 0.4 sublingually q.5 p.r.n. 10.Norvasc 5 mg p.o. daily. Follow up with Dr. Marx in 3 days. Follow up with Dr. Jaylan Moreira on 10/29/2017. Patient was yet again advised against smoking. MMODL / IJN: [id number] /
== END 2017-10-25 13:48 | disposition home or self-care (01) | DRG 287 ==
LOC: EC 13:18 → 3OBS 15:29 → OBSVTOIN 10-23 15:22
PROVIDERS: ADMIT Hospitalist; ATTEND Hospitalist
PROC: B2111ZZ Fluoroscopy of Multiple Coronary Arteries using Low Osmolar Contrast (ICD-10-PCS; 2017-10-24)
PROC: 4A023N7 Measurement of Cardiac Sampling and Pressure, Left Heart, Percutaneous Approach (ICD-10-PCS; principal; 2017-10-24 10:32)
DX: I25.110 Atherosclerotic heart disease of native coronary artery with unstable angina pectoris (principal); I25.84 Coronary atherosclerosis due to calcified coronary lesion; I10 Essential (primary) hypertension; F17.210 Nicotine dependence, cigarettes, uncomplicated; E11.9 Type 2 diabetes mellitus without complications; E66.9 Obesity, unspecified; E78.5 Hyperlipidemia, unspecified; I25.9 Chronic ischemic heart disease, unspecified; I65.29 Occlusion and stenosis of unspecified carotid artery; K21.9 Gastro-esophageal reflux disease without esophagitis; Z68.31 Body mass index [BMI] 31.0-31.9, adult; Z79.4 Long term (current) use of insulin; Z79.82 Long term (current) use of aspirin; Z79.899 Other long term (current) drug therapy; Z80.0 Family history of malignant neoplasm of digestive organs; Z83.3 Family history of diabetes mellitus; Z96.41 Presence of insulin pump (external) (internal); Z88.6 Allergy status to analgesic agent; Z88.5 Allergy status to narcotic agent
CPT/HCPCS: 36415; 71046; 78452; 80053; 80061; 82550; 82553; 83036; 83690; 83735; 84484; 85025; 85049; 85379; 85610; 85730; 93005; 93017; 93306; 93458; 96365; 96366; 96376; 99291

== ENCOUNTER → 2018-01-22 | Outpatient (CLI) | payer MEDICARE, OTHER ==
--- NOTE | 2018-01-23 13:25 | MM ---
Reason for exam: screening (asymptomatic). Last mammogram was performed 4 years and 3 months ago. History: Patient is postmenopausal. Physical Findings: A clinical breast exam by your physician is recommended on an annual basis and results should be correlated with mammographic findings. MG 3D Screening Mammo W/Cad Bilateral CC and MLO view(s) were taken. Prior study comparison: October 14, 2013, bilateral MG screening mammo w CAD. October 13, 2012, bilateral digital screening mammo w/CAD. The breast tissue is heterogeneously dense. This may lower the sensitivity of mammography. There are benign appearing round, linear, vascular calcifications bilaterally. There is no discrete abnormality. ASSESSMENT: Benign, BI-RAD 2 RECOMMENDATION: Routine screening mammogram of both breasts in 1 year.
== END ==
LOC: RADMAMWWP 10:56
PROVIDERS: ATTEND Family Medicine
DX: Z12.31 Encounter for screening mammogram for malignant neoplasm of breast (principal)
CPT/HCPCS: 77063; 77067

== ENCOUNTER → 2020-03-16 | Outpatient (CLI) | payer MEDICARE, OTHER ==
[2020-03-16 14:39] LABS: African American GFR (CKD) >90 (>60 ml/min/1.73 sqM); Blood Urea Nitrogen 16 mg/dL (7-17); Non-African American GFR(CKD) >90 (>60 ml/min/1.73 sqM)
--- NOTE | 2020-03-16 16:20 | CT ---
EXAMINATION TYPE: CT chest w con DATE OF EXAM: 03/16/2020 COMPARISON: Chest x-ray 03/07/2020 HISTORY: Lung nodule. CT DLP: 534 mGycm Automated exposure control for dose reduction was used. CONTRAST: CT scan of the chest is performed with IV Contrast, patient injected with 100ml mL of Isovue 300. FINDINGS: LUNGS: Scattered 1 to 2 mm nodular densities are present, axial image 48 right lower lobe, image 26 r ight upper lobe, left lower lobe axial image 41. No pleural or pericardial effusion. No endobronchial lesion. MEDIASTINUM: There are no greater than 1 cm hilar or mediastinal lymph nodes. No pericardial effusi on is seen. There are some coronary artery calcifications, possible mitral annular calcification. Th ere is a hiatal hernia present containing some fat. AORTA: No additional significant abnormality is seen. OTHER: Patient is post cholecystectomy. There is degenerative disc disease in the visualized spine. Superior endplate deformities noted in the lower thoracic and upper lumbar spine. IMPRESSION: Benign lung nodules are favored, follow-up could be performed in one year to assess for any interval change.
== END | disposition home or self-care (01) ==
LOC: RADCTMAIN 13:57
PROVIDERS: ATTEND Internal Medicine
DX: R91.8 Other nonspecific abnormal finding of lung field (principal)
CPT/HCPCS: 82565; 84520; 71260; 36415; Q9967

== ENCOUNTER → 2022-10-31 | Outpatient (CLI) | payer MEDICARE, OTHER ==
--- NOTE | 2022-10-31 17:28 | CTL ---
EXAMINATION TYPE: CT Low Dose Lung DATE OF EXAM ORDERED: 10/31/2022 HISTORY: 71-year-old female Z87.891, current smoker and 20 pack-year history. Lung cancer screening CT DLP: 67.[address] CTDI: 2.1 mGy Automated exposure control for dose reduction was used. SCREENING VISIT: Baseline COMPARISON: 03/16/2020 TECHNIQUE: Low dose computed tomography scan was performed through the coronal and sagittal reconstru ctions. CT DIAGNOSTIC QUALITY: Satisfactory FINDINGS: The heart is normal size without pericardial effusion. Dense mitral annular calcifications are presen t. LAD and RCA coronary artery calcifications are noted. Aorta normal caliber with mild to moderate atherosclerotic arch calcifications and conventional arch vessel branching anatomy. Mild atherosclerotic narrowing at the origin of the left subclavian artery. Possible moderate narrowing of the origin of the right subclavian artery. No thoracic lymph adenopathy by CT size criteria. Mild emphysematous change. Mild biapical pleural-parenchymal scarring. Mild diffuse bronchial wall th ickening. No consolidation or pleural effusion. * Stable 4 mm posterolateral right mid lung pulmonary nodule, axial image 115. * Stable 4 mm posterior right lower lobe pulmonary nodule, axial image 155. * Unchanged 3 mm subpleural pulmonary nodule posterior left base, axial image 182. * No new suspicious pulmonary nodule is seen. Small hiatal hernia. Visualized upper abdomen otherwise shows no gross abnormality. Scattered mild degenerative disc disease mid to lower thoracic spine. IMPRESSION: 1. Lung-RADS 2, benign. Stable few 4 mm and smaller pulmonary nodules. 2. COPD with mild emphysema. Recommend smoking cessation. 3. Small hiatal hernia. CT LUNG RAD AND CT CHEST RECOMMENDATION: Lung-Rad 2 Benign Appearance or Behavior: Continue annual sc reening with LDCT in 12 months. S Modifier (other clinically significant findings): None
== END | disposition home or self-care (01) ==
LOC: RADCTMAIN 10:55
PROVIDERS: ATTEND Internal Medicine
DX: Z12.2 Encounter for screening for malignant neoplasm of respiratory organs (principal); J43.9 Emphysema, unspecified; F17.210 Nicotine dependence, cigarettes, uncomplicated; K44.9 Diaphragmatic hernia without obstruction or gangrene; R91.8 Other nonspecific abnormal finding of lung field
CPT/HCPCS: 71271

== ENCOUNTER → 2023-11-18 | Outpatient (CLI) | payer MEDICARE, OTHER ==
--- NOTE | 2023-11-18 10:21 | CTL ---
EXAMINATION TYPE: CT Low Dose Lung DATE OF EXAM ORDERED: 11/18/2023 HISTORY: 72-year-old female Z12.2, screening, F17.210, nicotine dependence. Lung cancer screening. Cu rrent smoker with 50 pack-year history. CT DLP: 74.[address] CTDI: 2.2 mGy Automated exposure control for dose reduction was used. SCREENING VISIT: Annual follow-up COMPARISON: 10/31/2022 TECHNIQUE: Low dose computed tomography scan was performed through the chest at 1 mm thick sections a nd reconstructed images in multiple planes at 1 mm and [address] DIAGNOSTIC QUALITY: Satisfactory FINDINGS: Heart normal size without pericardial effusion. Dense mitral annular calcifications are present. LAD and RCA coronary calcifications. Mild aortic valve calcifications. Aorta normal caliber within the chart vessel branching anatomy. Possible mild stenosis at the origin of the left subclavian artery. Possible moderate or severe stenosis of the origin of the right subclavian artery. Mild to moderate diffuse bronchial wall thickening. Mild emphysematous change. Mild biapical pleural- parenchymal scarring. No consolidation or pleural effusion. 5 mm posterior right lower lobe pulmonary nodule, axial image 161 slightly increased from 4 mm, previ ously. 4 mm lateral right midlung pulmonary nodule is unchanged, axial image 125. Benign calcified granuloma posterior left lower lobe, axial image 186. There is a small hiatal hernia. Visualized upper abdomen otherwise shows no gross adenopathy. Bones: Mild degenerative changes throughout the mid and lower thoracic spine. IMPRESSION: 1. LungRADS Category 3 (probably benign, 1-2% chance of malignancy); a posterior right lower lobe pul monary nodule shows slight interval increase in size now 5 mm compared to prior exam. Six-month follo w-up to reassess. 2. COPD with mild emphysema. Bronchial wall thickening suggests a prominent component of underlying b ronchitis. Recommend smoking cessation. 3. Atherosclerotic changes at the origin of the bilateral subclavian arteries. This may contribute to a moderate to severe stenosis at the origin of the right subclavian artery. Clinically correlate. 4. Small hiatal hernia. CT LUNG RAD AND CT CHEST RECOMMENDATION: Lung-Rad 3 Probably Benign: 6 month follow-up LDCT. S Modifier (other clinically significant findings): None
== END | disposition home or self-care (01) ==
LOC: RADCTMAIN 09:45
PROVIDERS: ATTEND Internal Medicine
DX: Z12.2 Encounter for screening for malignant neoplasm of respiratory organs (principal); J43.9 Emphysema, unspecified; J44.9 Chronic obstructive pulmonary disease, unspecified; K44.9 Diaphragmatic hernia without obstruction or gangrene; R91.1 Solitary pulmonary nodule; F17.210 Nicotine dependence, cigarettes, uncomplicated
CPT/HCPCS: 71271

== ENCOUNTER → 2024-04-13 | Outpatient (CLI) | payer MEDICARE, OTHER ==
--- NOTE | 2024-04-13 11:39 | FL ---
Exam Date: 04/13/2024 11:12 AM. Modified barium swallow for dysphagia. Consistencies administered: Various consistency of barium. Fluoro time: 44 sec No images were sent to PACS. Please see speech pathology report. DAP: not reported mGym2 Gycm2 [facility], , 04/13/2024 11:37 AM
== END | disposition home or self-care (01) ==
LOC: RADFLMAIN 10:40
PROVIDERS: ATTEND Otolaryngology
DX: R13.10 Dysphagia, unspecified (principal)
CPT/HCPCS: 74230

== ENCOUNTER → 2024-05-11 | Outpatient (CLI) | payer MEDICARE, OTHER ==
[2024-05-11 12:15] LABS: African American GFR (CKD) >90 (>60 ml/min/1.73 sqM); Blood Urea Nitrogen 20 mg/dL (7-17); Non-African American GFR(CKD) 88 (>60 ml/min/1.73 sqM)
--- NOTE | 2024-05-11 12:54 | CT ---
EXAMINATION TYPE: CT chest w con CT DLP: 354.2 mGycm, Automated exposure control for dose reduction was used. DATE OF EXAM: 05/11/2024 12:39 PM COMPARISON: CT low-dose lung 11/18/2023, 10/31/2022, CT chest 03/16/2020 CLINICAL INDICATION:Female, 73 years old with history of R91.1 LUNG NODULE; PHH, lung nodule, COPD TECHNIQUE: Multiple axial images were obtained through the chest following the administration of 100 cc of Isovue 300. . Coronal and sagittal reformats reviewed. FINDINGS: LUNGS/ PLEURA: No pleural effusion, pneumothorax, or focal consolidation. Stable posterior right uppe r lobe 3 mm pulmonary nodule (series 4, image 24). Stable right lower lobe 3.5 mm pulmonary nodule (s eries 4, image 31). Stable left lower lobe 2.4 mm pulmonary nodule (series 4, image 38). No new or la rger pulmonary nodules. AIRWAY: Patent and unremarkable.. HEART: Size within normal limits.No pericardial effusion. Dense mitral annulus calcifications. Small coronary artery calcifications. MEDIASTINUM: No evidence of adenopathy. VASCULATURE: No aortic aneurysm. Mild atherosclerotic calcification of the aorta and its branches. MUSCULOSKELETAL: No acute osseous abnormalities and mild multilevel degenerative disc disease. Promin ent Schmorl's nodes involving the superior endplate of the T12 and L1 vertebral bodies. SOFT TISSUES/LYMPH NODES: Unremarkable. LOWER NECK: Subcentimeter hypodense nodules within the left thyroid lobe. UPPER ABDOMEN: Gallbladder is surgically absent. Small hiatal hernia. IMPRESSION: Stable few pulmonary nodules measuring less than 4 mm. These date back to 2019 and are considered aspen ign. No new or enlarging pulmonary nodules. [facility], , 05/11/2024 12:51 PM
== END | disposition home or self-care (01) ==
LOC: RADCTMAIN 11:32
PROVIDERS: ATTEND Internal Medicine
DX: J44.9 Chronic obstructive pulmonary disease, unspecified (principal); R91.1 Solitary pulmonary nodule
CPT/HCPCS: 82565; 84520; 71260; 36415; Q9967